=== PATIENT | male | born 1960 | race Two or more races ===

== ENCOUNTER 2025-08-30 09:06 | Outpatient (CLI) | payer MEDICAID ==
[2025-08-30 09:38] LABS: Hematocrit 48.4 % (41.0-53.0); Hemoglobin 16.8 g/dL (13.5-17.5); Mean Corpuscular Hemoglobin 30.8 pg (28.0-32.0); Mean Corpuscular Volume 88.8 fL (80.0-100.0); Nucleated Red Blood Cells % 0.0 %
[2025-08-30 09:42] LABS: Urine Protein, UAD Negative (Negative)
[2025-08-30 10:06] LABS: Alanine Aminotransferase 29 U/L (7-40); Albumin 4.5 g/dL (3.2-4.8); Alkaline Phosphatase 91 U/L (46-116); Anion Gap 11 (5-15); BUN/Creatinine Ratio 14.6 (10.0-20.0); Blood Urea Nitrogen 14 mg/dL (9-23); Calcium 9.9 mg/dL (8.7-10.4); Carbon Dioxide 26 mmol/L (20-31); Chloride 101 mmol/L (98-107); Microalb/Creat Ratio, Urine 136.0; Potassium 4.2 mmol/L (3.5-5.1); Sodium 138 mmol/L (136-145); Total Protein 7.7 g/dL (5.7-8.2)
[2025-08-30 10:07] LABS: Bilirubin, Total 0.5 mg/dL (0.2-1.0)
[2025-08-30 10:09] LABS: Cholesterol 242 mg/dL (< 200); Glucose 264 mg/dL (74-106); HDL Cholesterol 40 mg/dL (40-59); Triglycerides 844 mg/dL (< 150)
== END 2025-08-30 17:00 | disposition home or self-care (01) ==
LOC: LAB 09:06
PROVIDERS: ATTEND Internal Medicine
DX: E11.9 Type 2 diabetes mellitus without complications (principal); E78.5 Hyperlipidemia, unspecified; Z00.01 Encounter for general adult medical examination with abnormal findings
CPT/HCPCS: 36415; 80053; 80061; 81001; 82043; 82570; 83036; 84439; 84443; 85025